=== PATIENT | male | born 1995 | race Hispanic/Latino ===

== ENCOUNTER 2019-09-18 16:33 | Emergency (ER) | payer OTHER | END 2019-09-18 17:48 | disposition home or self-care (01) | LOC: EDH 16:33 | DX: S92.901A Unspecified fracture of right foot, initial encounter for closed fracture (principal); Z72.0 Tobacco use; W22.8XXA Striking against or struck by other objects, initial encounter; Y93.89 Activity, other specified; Y92.89 Other specified places as the place of occurrence of the external cause; Y99.8 Other external cause status | CPT/HCPCS: 99281 ==